=== PATIENT | female | born 2000 | race Caucasian/White ===

== ENCOUNTER 2025-09-28 13:29 | Emergency (ER) | payer MEDICAID ==
[~2025-09-28] VITALS: Ht 160 cm; Wt 70.0 kg
[~2025-09-28 13:29] MED LIST: INSLIS SUBCUT; INSU100V36 SQ
[2025-09-28 14:24] VITALS: TEMP 36.8; O2SAT 99
[2025-09-28 15:21] LABS: BG BASE EXCESS -1.3 mmol/L (-2.0-3.0); BG CARBOXYHEMOGLOBIN 0.9 % (0.5-1.5); BG DEOXYHEMOGLOBIN 3.8 % (0.0-5.0); BG FRACTION INSPIRED OXYGEN 21; BG HCO3 ACT 22.7 mmol/L (21.0-28.0); BG METHEMOGLOBIN 0.1 % (0.5-1.5); BG OXYGEN SATURATION 96.2 % (94.0-98.0); BG OXYHEMOGLOBIN 95.2 % (94.0-98.0); BG PCO2 36.0 mmHg (32.0-45.0); BG PH 7.418 (7.350-7.450); BG PO2 88.0 mmHg (83.0-108.0); BG SAMPLE SITE RIGHT RADIAL; BG TOTAL HEMOGLOBIN 13.9 g/dL (12.0-16.0); BG VENT MODE ROOM AIR
[2025-09-28] MEDS: SODIUM CHLORIDE 0.9% 1,000 ML IV ONE ×2 (15:29→16:52)
[2025-09-28 15:55] LABS: BASOPHILS % 0.4 % (0.0-2.0); EOSINOPHILS % 0.2 % (0.0-5.0); HEMATOCRIT. 38.8 % (36.0-48.0); HEMOGLOBIN. 13.1 g/dL (12.0-16.0); LYMPHOCYTES % 9.5 % (20.0-50.0); MEAN PLATELET VOLUME 9.4 fl (7.4-10.4); MONOCYTES % 3.1 % (2.0-8.0); NEUTROPHILS % 86.8 % (40.0-76.0); PLATELET 299 x1000/uL (130-400); RED BLOOD CELL COUNT 4.19 mill/uL (4.2-5.4); RED CELL DISTRIBUTION WIDTH 12.9 % (11.6-14.6)
[2025-09-28 16:13] LABS: HCG SCREEN NEGATIVE
[2025-09-28 16:14] LABS: CREATININE 0.7 mg/dL (0.6-1.0)
[2025-09-28 16:15] LABS: UREA NITROGEN BLOOD 13 mg/dL (9-23)
[2025-09-28 16:16] LABS: ASPARTATE AMINOTRANSFERASE 38 IU/L (<34)
[2025-09-28 16:17] LABS: BILIRUBIN DIRECT 0.2 mg/dL (<=3.0); BILIRUBIN TOTAL 0.8 mg/dL (0.1-1.0); PROTEIN TOTAL 7.9 g/dL (6.0-8.3)
[2025-09-28] MEDS: ONDANSETRON HCL 4MG/2ML INJ IV ONE (16:51)
[2025-09-28] MEDS ORDERED: ONDA4TAB50 MT (16:51)
[2025-09-28] MEDS: INSULIN REGULAR (HUMULIN R) 1000UNITS/10ML VIAL SUBCUT ONE (17:42)
[2025-09-28 18:24] VITALS: BP 122/78; PULSE 74; RESP 14; O2SAT 99
== END 2025-09-28 18:25 | disposition home or self-care (01) ==
LOC: ER 14:19
DX: E10.65 Type 1 diabetes mellitus with hyperglycemia (principal); R53.1 Weakness; R11.2 Nausea with vomiting, unspecified; Z79.4 Long term (current) use of insulin; Z79.899 Other long term (current) drug therapy
CPT/HCPCS: 99284; 96374; 96361; 80076; 80048; 81025; 82010; 82962; 84703; 85025; 36415; 82805; 82375; 93005; 96372; 36600; J2405; J7030; J1815